=== PATIENT | female | born 1950 | race Asian ===

== ENCOUNTER 2019-09-24 10:39 | Day surgery (SDC) | payer OTHER ==
[2019-09-22 14:00] VITALS: BMI 21.2
[~2019-09-24 10:39] MED LIST: LACTATED RINGERS 1,000 ML IV SCH; LIDOCAINE 1% 20 ML VIAL (10MG/ML) FOR IV START INTRADERMA PRN
[2019-09-24 11:08] VITALS: TEMP 97.6
[2019-09-24] MEDS ORDERED: PROPOFOL 10 MG/ML 20 ML VIAL IV ONE (12:03)
--- NOTE | 2019-09-24 12:17 | P.PCN ---
Date of Procedure: 09/24/19 Procedure(s) Performed: BRIEF HISTORY: Patient is a 69-year-old pleasant femalescheduled for an elective colonoscopy as a part of screening for colorectal neoplasia. PROCEDURE PERFORMED: Colonoscopy. PREOPERATIVE DIAGNOSIS: Screening for colon cancer. IV sedation per Anesthesia. PROCEDURE: After informed consent was obtained, the patient, was brought into the endoscopy unit. IV sedation was administered by Anesthesia under continuous monitoring. Digital rectal examination was normal. Initially the Olympus CF-160 flexible video colonoscope was then inserted in the rectum, gradually advanced into the cecum without any difficulty. Careful examination was performed as the scope was gradually being withdrawn. Ileocecal valve and the appendiceal orifice were visualized and appeared normal. Prep was excellent. Mucosa of the cecum, ascending colon, transverse colon, descending colon, sigmoid colon, and rectum appeared normal. Retroflexion was performed in the rectum and no lesions were seen. The patient tolerated the procedure well. IMPRESSION: Normal-appearing colon from rectum to cecum . RECOMMENDATIONS: Findings of this examination were discussed with the patient [as well as her family. She was advised to have a repeat screening colonoscopy in 10 years
[2019-09-24 12:20] VITALS: RESP 16
[2019-09-24 12:35] VITALS: BP 90/48; PULSE 58
== END 2019-09-24 13:02 | disposition home or self-care (01) ==
LOC: ORWHC2ENDO 10:39 → EDSEX 12:40 → ORWHC2ENDO 13:02
PROVIDERS: ATTEND Internal Medicine Gastroenterology
DX: Z12.11 Encounter for screening for malignant neoplasm of colon (principal)
CPT/HCPCS: J2704; G0121; 45378

== ENCOUNTER → 2021-08-23 | Outpatient (CLI) | payer OTHER ==
--- NOTE | 2021-08-27 09:30 | MM ---
Reason for exam: screening (asymptomatic). History: Patient is postmenopausal. Physical Findings: A clinical breast exam by your physician is recommended on an annual basis and results should be correlated with mammographic findings. MG Screening Mammo w CAD Bilateral CC and MLO view(s) were taken. No prior studies available for comparison. There are scattered fibroglandular densities. There is an asymmetry in the upper right breast on MLO view only and diagnostic right mammogram and possible ultrasound are recommended. ASSESSMENT: Incomplete: need additional imaging evaluation, BI-RAD 0 RECOMMENDATION: Special view mammogram of the right breast. If lesion persists on supplemental views, image directed ultrasound is recommended. [facility] will attempt to contact patient to return for supplemental views and ultrasound if indicated.
== END | disposition home or self-care (01) ==
LOC: RADMAMWWP 08:19
PROVIDERS: ATTEND Family Medicine
DX: Z12.39 Encounter for other screening for malignant neoplasm of breast (principal)
CPT/HCPCS: 77067

== ENCOUNTER → 2021-09-19 | Outpatient (CLI) | payer OTHER ==
--- NOTE | 2021-09-19 16:14 | MR ---
EXAMINATION TYPE: MR brain and iac wo/w con DATE OF EXAM: 09/19/2021 COMPARISON: None HISTORY: Hearing loss, ringing in ears CONTRAST: Performed utilizing 5 mL intravenous Gadavist gadolinium contrast. TECHNIQUE: Multiplanar, multiecho imaging on a 3.0 Keeley magnet is performed through the brain. Atte ntion is paid to the internal auditory canals with thin section imaging. Postcontrast imaging is per formed through the internal auditory canals. FINDINGS:Craniovertebral junction is normal. The pituitary is normal. Diffusion-weighted imaging is performed. No suspicious hyperintensity is present to suggest an acute intracranial infarct or acute ischemic area. There are a few punctate subcortical white matter changes within the centrum semiovale bilaterally. T hese are nonspecific but could be related to microvascular ischemic change. Other etiologies includin g vasculitis, multiple sclerosis, migraine headaches could be considered. Thin section imaging is performed through the internal auditory canals and cerebellar pontine angles. No cerebellar pontine angle masses are evident. The internal auditory canals appear normal without expansion or erosion. Postcontrast imaging was performed. No suspicious enhancement is evident within the internal audito ry canals or the included portions of the brain. IMPRESSIONS: 1. Normal internal auditory canals. 2. Diffuse bilateral subcortical white matter changes are nonspecific but could be related to microva scular ischemic change
== END | disposition home or self-care (01) ==
LOC: RADMRIMAIN 09-03 07:34
PROVIDERS: ATTEND Otolaryngology
DX: H90.A22 Sensorineural hearing loss, unilateral, left ear, with restricted hearing on the contralateral side (principal)
CPT/HCPCS: 70553; A9585

== ENCOUNTER → 2021-12-10 | Outpatient (CLI) | payer OTHER ==
--- NOTE | 2021-12-11 08:37 | MM ---
Reason for exam: additional evaluation requested from abnormal screening. Last mammogram was performed 4 months ago. History: Patient is postmenopausal. Physical Findings: Nurse did not find any significant physical abnormalities on exam. MG Work Up Mamm w CAD RT LM and spot compression MLO view(s) were taken of the right breast. Prior study comparison: August 23, 2021, bilateral MG screening mammo w CAD. The breast tissue is heterogeneously dense. This may lower the sensitivity of mammography. Focal asymmetry less distinct. These results were verbally communicated with the patient and result sheet given to the patient on 12/10/21. ASSESSMENT: Probably benign, BI-RAD 3 RECOMMENDATION: Follow-up diagnostic mammogram of the right breast in 6 months.
== END ==
LOC: RADMAMWWP 14:27
PROVIDERS: ATTEND Family Medicine
DX: R92.8 Other abnormal and inconclusive findings on diagnostic imaging of breast (principal)
CPT/HCPCS: 77065

== ENCOUNTER 2022-10-25 17:39 | Emergency (ER) | payer OTHER ==
[2022-10-25] MEDS ORDERED: MORPHINE SULFATE 2 MG/ML SYRINGE IVP ONE (17:56)
--- NOTE | 2022-10-25 19:19 | XR ---
EXAMINATION TYPE: XR shoulder complete RT DATE OF EXAM: 10/25/2022 COMPARISON: NONE HISTORY: Pain. Fall. TECHNIQUE: 3 views FINDINGS: The glenohumeral joint is intact. There is some narrowing of the subacromial joint space. N o fracture seen. Scapula is intact. IMPRESSION: There is subacromial joint space narrowing. No fracture seen.
--- NOTE | 2022-10-25 19:21 | XR ---
EXAMINATION TYPE: XR humerus RT DATE OF EXAM: 10/25/2022 COMPARISON: NONE HISTORY: Pain TECHNIQUE: 4 views FINDINGS: There is no evidence of fracture nor dislocation. Glenohumeral joint is anatomic. The elbow joint is intact IMPRESSION: Negative right humerus exam.
--- NOTE | 2022-10-25 19:24 | XR ---
EXAMINATION TYPE: XR wrist complete BILATERAL DATE OF EXAM: 10/25/2022 COMPARISON: NONE HISTORY: Wrist pain. Fall. TECHNIQUE: 3 views each wrist FINDINGS: The left wrist appears intact without evidence for fracture. There is impacted transverse fracture of the right wrist distal radial metaphysis. There is slight an terior angulation and posterior displacement of the distal fragments on the lateral view. No dislocat ion. The metacarpals are intact. There is slight lateral displacement of the distal radius fracture f ragments 1 cm. IMPRESSION: No evidence of fracture of the left wrist. Slightly impacted transverse fracture distal right radius.
--- NOTE | 2022-10-25 19:42 | ED ---
General Adult HPI <Brad Corado - Last Filed: 10/25/22 22:28> - General Source: EMS, RN notes reviewed Mode of arrival: EMS <Lurdes Brown - Last Filed: 10/25/22 23:33> - General Chief complaint: Fall Stated complaint: broken arm Time Seen by Provider: 10/25/22 17:40 - History of Present Illness Initial comments: 72-year-old female presents to the emergency department with a chief complaint of right wrist pain after a fall. She reports that she was at the pressure store and didn't see a step and tripped with her hands out forward. She denies hitting her head, any loss of consciousness, any anticoagulant use. She denies any dizziness, loss of vision, changes in vision, headache, nausea, vomiting. She did not take anything for his symptoms prior to arrival. (Lurdes Brown) - Related Data Home Medications Medication Instructions Recorded Confirmed Multivitamins, Thera [Multivitamin 1 tab PO DAILY 09/22/19 09/22/19 (formulary)] Previous Rx's Medication Instructions Recorded HYDROcodone/APAP 5-325MG [Morrice 1 tab PO Q6HR PRN 3 Days #12 tab 10/25/22 5-325] Allergies Allergy/AdvReac Type Severity Reaction Status Date / Time No Known Allergies Allergy Verified 09/22/19 13:51 Review of Systems ROS Other: All systems not noted in ROS Statement are negative. <Brad Corado - Last Filed: 10/25/22 22:28> ROS Other: All systems not noted in ROS Statement are negative. <Lurdes Brown - Last Filed: 10/25/22 23:33> ROS Statement: Those systems with pertinent positive or pertinent negative responses have been documented in the HPI. Past Medical History Additional Past Medical History / Comment(s): dtr states "follows with Climatologist for racing heart and fatigue",makenzie cataracts History of Any Multi-Drug Resistant Organisms: None Reported Additional Past Surgical History / Comment(s): rt cataract 09-20-19 Past Anesthesia/Blood Transfusion Reactions: No Reported Reaction Past Alcohol Use History: Occasional Past Drug Use History: None Reported - Past Family History Mother Additional Family Medical History / Comment(s): heart problems Father Family Medical History: Cancer Additional Family Medical History / Comment(s): lung <Lurdes Brown - Last Filed: 10/25/22 23:33> General Exam General appearance: alert, in no apparent distress Head exam: Present: atraumatic, normocephalic, normal inspection Eye exam: Present: normal appearance, PERRL, EOMI. Absent: scleral icterus, conjunctival injection, periorbital swelling ENT exam: Present: normal exam, mucous membranes moist Neck exam: Present: normal inspection. Absent: tenderness, meningismus, lymphadenopathy Respiratory exam: Present: normal lung sounds bilaterally. Absent: respiratory distress, wheezes, rales, rhonchi, stridor Cardiovascular Exam: Present: regular rate, normal rhythm, normal heart sounds. Absent: systolic murmur, diastolic murmur, rubs, gallop, clicks GI/Abdominal exam: Present: soft, normal bowel sounds. Absent: distended, tenderness, guarding, rebound, rigid Extremities exam: Present: normal inspection, full ROM, normal capillary refill. Absent: tenderness, pedal edema, joint swelling, calf tenderness Right Hand Wrist exam: Present: tenderness, swelling, ecchymosis, deformity, other (2+ radial pulse, distal NVI ). Absent: normal inspection, full ROM (limited secondary to pain ), crepitus, erythema Back exam: Present: normal inspection Neurological exam: Present: alert, oriented X3, CN II-XII intact Psychiatric exam: Present: normal affect, normal mood Skin exam: Present: warm, dry, intact, normal color. Absent: rash <AbelanhLurdes albrecht - Last Filed: 10/25/22 23:33> Course <AbelanhLurdes albrecht - Last Filed: 10/25/22 23:33> Vital Signs 10/25/22 10/25/22 10/25/22 17:41 21:37 21:41 Temperature 97.7 F Pulse Rate 74 64 67 Respiratory 18 18 26 H Rate Blood Pressure 149/73 139/72 190/92 O2 Sat by Pulse 97 100 100 Oximetry 10/25/22 10/25/22 10/25/22 21:46 21:50 21:56 Temperature Pulse Rate 68 66 67 Respiratory 21 20 18 Rate Blood Pressure 167/87 162/84 163/85 O2 Sat by Pulse 100 100 100 Oximetry 10/25/22 10/25/22 10/25/22 22:16 22:32 23:03 Temperature 98.3 F Pulse Rate 73 68 67 Respiratory 16 18 18 Rate Blood Pressure 156/80 150/76 142/69 O2 Sat by Pulse 94 L 96 96 Oximetry - Reevaluation(s) Reevaluation #1: 10/25/22 19:[address] Mcfarlane Orthopedist on-call who recommends we reduce the right wrist and placed the patient in a sugar tong splint with follow-up outpatient appointment next week. (Lurdes Brown) Reevaluation #2: 10/25/22 21:47 Conscious sedation procedure completed. (Lurdes Brown) Procedures - Orthopedic Fracture Reduction Fracture #1 Consent Obtained: verbal consent, written consent Side: right Fracture Reduction Location: radius Analgesia: procedural sedation Technique: direct manipulation, traction/counter-traction Post Reduction X-rays Demonstrate: acceptable reduction Post-Reduction Neuro Exam: intact Post-Reduction Vascular Exam: intact Splint Applied: Yes Patient Tolerated Procedure: well - Procedural Sedation *Procedural Sedation Start Time: 21:37 *Procedural Sedation Stop Time: 22:00 *Indications: fracture/dislocation reduction *Previous Adverse Reaction to Anesthesia/Sedation?: No * Testing Complete?: No Reason Test Not Complete:: Age > 60 *ASA Class: I *Mallampati Airway Score: 2 *Time of Last PO Intake: 14:00 Preparation: technical report writer applied, pulse oximeter, capnometry used, supplemental O2 applied, suction/airway equipment at bedside, IV secured Ketamine: IV Ketamine Dose: 25 IV Propofol Dose (mgs): 30 Complications: none Patient Tolerated Procedure: well <Brad Corado - Last Filed: 10/25/22 22:28> - Orthopedic Joint Reduction Joint #1 Consent Obtained: written consent Side: right - Orthopedic Splinting/Casting Injury #1 Side: right Upper Extremity Injury Location: wrist Upper Extremity Immobilizer: sling/shoulder immobilizer, sugar tong splint <Lurdes Brown - Last Filed: 10/25/22 23:33> - Orthopedic Fracture Reduction Fracture #1 Additional Comments: Neurovascularly intact following the procedure. Intact sensation and intact capillary refill <2s. (Brad Corado) - Orthopedic Joint Reduction Joint #1 Additional Comments: Seizure performed at 21:37 with NASIR Dobbs, respiratory therapist, Chelsie Clark at bedside. Patient tolerated well. (Lurdes Brown) - Orthopedic Splinting/Casting Injury #1 Additional Comments: 2+ radial pulses post reduction, distal NVI remains intact postreduction. (Lurdes Brown) - Procedural Sedation Presedation Evaluation: No prior adverse reaction to sedation (Brad Corado) Additional Comments: Patient consented via translation via her daughter who speaks good Lithuanian and I answered all questions that she had. (Brad Corado) Medical Decision Making <Lurdes Brown - Last Filed: 10/25/22 23:33> - Medical Decision Making Was pt. sent in by a medical professional or institution (, PA, AUTO RADIO MECHANIC, urgent care, hospital, or senior living...) When possible be specific @ -[No] Did you speak to anyone other than the patient for history (EMS, parent, family, police, friend...)? What history was obtained from this source @ -[No] Did you review nursing and triage notes (agree or disagree)? Why? @ -[I reviewed and agree with nursing and triage notes] Were old charts reviewed (outside hosp., previous admission, EMS record, old EKG, old radiological studies, urgent care reports/EKG's, senior living records)? Report findings @ -[No old charts were reviewed] Differential Diagnosis (chest pain, altered mental status, abdominal pain women, abdominal pain men, vaginal bleeding, weakness, fever, dyspnea, syncope, headache, dizziness, GI bleed, back pain, seizure, CVA, palpatations, mental health)? @ -[not applicable] EKG interpreted by me (3pts min.). @ -[As above] X-rays interpreted by me (1pt min.). @ Initial x-ray with impacted transverse fracture of the right wrist distal radial metaphysis there is slight anterior angulation and posterior displacement of the distal fragment on the lateral view Post reduction x-ray results reveal transverse fracture of the distal radius CT interpreted by me (1pt min.). @ -[None done] U/S interpreted by me (1pt. min.). @ -[None done] What testing was considered but not performed or refused? (CT, X-rays, U/S, labs)? Why? @ -[None] What meds were considered but not given or refused? Why? @ -[None] Did you discuss the management of the patient with other professionals (professionals i.e. , PA, AUTO RADIO MECHANIC, lab, RT, psych nurse, licensed social worker, supply chain associate, teacher, correction officer reformatory, binder caser)? Give summary @ -[No] Was smoking cessation discussed for >3mins.? @ -[No] Was critical care preformed (if so, how long)? @ -[No] Were there social determinants of health that impacted care today? How? (Homelessness, low income, unemployed, alcoholism, drug addiction, transportation, low edu. Level, literacy, decrease access to med. care, group home, rehab)? @ -[No] Was there de-escalation of care discussed even if they declined (Discuss DNR or withdrawal of care, Hospice)? DNR status @ -[No] What co-morbidities impacted this encounter? (DM, HTN, Smoking, COPD, CAD, Cancer, CVA, ARF, Chemo, Hep., AIDS, mental health diagnosis, sleep apnea, morbid obesity)? @ -[None] Was patient admitted / discharged? Hospital course, mention meds given and route, prescriptions, significant lab abnormalities, going to OR and other pertinent info. @ 72-year-old female presents to the emergency department with a chief complaint of right wrist pain. She had a history and physical performed. Physical exam reveals tender, deformed R wirst with 2+ radial pulses, distal NVI. Conscious sedation was performed on the patient in order to achieve reduction. Post reduction x-rays show better alignment and cleaning transfer the right distal radius. Patient was given morphine with symptomatic relief on the emergency department. I discussed the results in detail with the patient, patient verbalized understanding all questions were addressed. Return precautions were discussed. She was encouraged to follow up with orthopedist Dr. Walker's and within 1-2 days. She was given a prescription of Morrice 5 and Zofran 4 postanesthesia nausea. Patient was discharged in stable condition. I discussed the case with Dr. Corado who agrees with plan for discharge Undiagnosed new problem with uncertain prognosis? @ -[No] Drug Therapy requiring intensive monitoring for toxicity (Heparin, Nitro, Insulin, Cardizem)? @ -[No] Were any procedures done? @ -[No] Diagnosis/symptom? @ -riht distal radius fracture Acute, or Chronic, or Acute on Chronic? @ -[default] Uncomplicated (without systemic symptoms) or Complicated (systemic symptoms)? @ -[default] Side effects of treatment? @ -[No] Exacerbation, Progression, or Severe Exacerbation? @ -[No] Poses a threat to life or bodily function? How? (Chest pain, USA, PR, pneumonia, PE, COPD, DKA, ARF, appy, cholecystitis, CVA, Diverticulitis, Homicidal, Suicidal, threat to staff... and all critical care pts) @ -[No] (Lurdes Brown) Disposition <Brad Corado - Last Filed: 10/25/22 22:28> Is patient prescribed a controlled substance at d/c from ED?: Yes When asked, does pt state using other controlled substances?: No If prescribed controlled substance>3 days was MAPS reviewed?: Prescribed <3 Days If opioid is for acute pain is fill amount 7 days or less?: Yes If Rx opioid, was Start Talking consent form obtained?: Yes Time of Disposition: 22:35 <Lurdes Brown - Last Filed: 10/25/22 23:33> Clinical Impression: Fall, Radius distal fracture Disposition: HOME SELF-CARE Condition: Stable Prescriptions: HYDROcodone/APAP 5-325MG [Morrice 5-325] 1 tab PO Q6HR PRN 3 Days #12 tab PRN Reason: Pain Referrals: Kadie Alcantar MD [Primary Care Provider] - 1-2 days Jimmy Mcfarlane DO [Doctor of Osteopathic Medicine] - 1-2 days Kenji Parra DO [REFERRING] - 1-2 days
[2022-10-25] MEDS ORDERED: PROPOFOL 10 MG/ML 20 ML VIAL IV ONE (20:14)
[2022-10-25] MEDS ORDERED: KETAMINE 50 MG/ML 10 ML VIAL IV STA (20:56)
[2022-10-25] MEDS ORDERED: ONDANSETRON 4 MG/2 ML VIAL IVP STA (22:05)
--- NOTE | 2022-10-25 22:08 | XR ---
EXAMINATION TYPE: XR wrist limited RT DATE OF EXAM: 10/25/2022 COMPARISON: NONE HISTORY: Post reduction TECHNIQUE: 2 views FINDINGS: There is transverse fracture of the distal radial metaphysis. No displacement. No dislocati on. Carpal bones are intact. Metacarpals are intact. IMPRESSION: There is satisfactory reduction of the fracture of the distal radius compared to recent e xam. No complicating process seen.
[2022-10-25 22:33] VITALS: RESP 18
[2022-10-25] MEDS ORDERED: ONDANSETRON 4 MG ODT STARTER PACK 2 TAB BTL PO STA (22:56)
[2022-10-25] MEDS ORDERED: ACET/COD 300 MG/30 MG STARTER PACK 6 TAB BTL PO STA (22:56)
[2022-10-25 23:04] VITALS: BP 142/69; PULSE 67; TEMP 98.3
== END 2022-10-25 23:04 | disposition home or self-care (01) ==
LOC: EC 17:39
DX: S59.201A Unspecified physeal fracture of lower end of radius, right arm, initial encounter for closed fracture (principal); W01.0XXA Fall on same level from slipping, tripping and stumbling without subsequent striking against object, initial encounter; Y92.481 Parking lot as the place of occurrence of the external cause
CPT/HCPCS: 73110; 73030; 73060; 73100; 25605; 99152; 99153; 99284; 96374; 96375; J2405; J2270; S0119; J2704

== ENCOUNTER → 2023-02-21 | Outpatient (CLI) | payer OTHER ==
--- NOTE | 2023-02-21 10:30 | MM ---
Reason for Exam: Follow-up at short interval from prior study. Last mammogram was performed 1 year(s) and 6 month(s) ago. Patient History: Menarche at age 18. First Full-Term at age 26. Postmenopausal. Risk Values: Sophia 5 year model risk: 1.8%. NCI Lifetime model risk: 4.6%. Prior Study Comparison: 08/23/2021 Bilateral Screening Mammogram, [facility]. 12/10/2021 Right Diagnostic Mammogram, [facility]. Tissue Density: The breast tissue is heterogeneously dense. This may lower the sensitivity of mammography. Findings: Analyzed By CAD. No suspicious mass or distortion within either breast. No suspicious group of microcalcifications within either breast. Previously seen asymmetry within the upper right breast on the MLO view is less distinct on today's exam. Overall Assessment: Benign, BI-RAD 2 Management: Screening Mammogram of both breasts in 1 year. A clinical breast exam by your physician is recommended on an annual basis and results should be correlated with mammographic findings. This exam should not preclude additional follow-up of suspicious palpable abnormalities. Results were given to the patient verbally at the time of exam. Electronically signed and approved by: Tan Combs D.O.
--- NOTE | 2023-02-25 19:08 | BD ---
EXAMINATION TYPE: Axial Bone Density DATE OF EXAM: 02/21/2023 CLINICAL HISTORY: 72 years old Female. ICD-10 CODE: Z13.820 SCREEN, Z78.0 ASYMPTOMATC MENOPAUSAL STA TE Height: 62 Weight: 128.3 FRAX RISK QUESTIONS: Alcohol (3 or more units per day): no Family History (Parent hip fracture): no Glucocorticoids (More than 3mos): no (Ex: prednisone, prednisolone, methylprednisolone, dexamethasone, and hydrocortisone). History of Fracture in Adulthood: wrist Secondary Osteoporosis: 1. Type 1 Diabetes: no 2. Hyperthyroidism: no 3. Menopause before 45: no 4. Malnutrition: no 5. Chronic liver disease: no Rheumatoid Arthritis: no Current Tobacco Use: no RISK FACTORS HISTORY OF: Hip Fracture (Right/Left): no Spine Fracture: no History of Wrist Fracture: yes When: Oct 2022 Surgery to Spine/Hip(right/left)/Wrist (right/left): no Family History of Osteoporosis: no Active: no Diet low in dairy products/other sources of calcium: no Postmenopausal woman: yes Take estrogen and/or progesterone medications: no Lost more than 2 inches in height since high school: no Frequent falls: no Poor Health: no Hyperparathyroidism: no Adrenal Insufficiency: no MEDICATIONS: Prednisone or other steroids: no Thyroid Medications: no Osteoporosis Medications: no Additional Medications: Cholesterol Meds, Vit D Best history possible, needed agency development manager for all questions Additional History: EXAM MEASUREMENTS: Bone mineral densitometry was performed using the [employer] System. Bone mineral density as measured about the Lumbar spine is: ----- L1-L4(G/cm2): 0.676 T Score Values are as follows: ----- L1: -4.6 ----- L2: -4.2 ----- L3: -4.6 ----- L4: -3.7 ----- L1-L4: -4.2 Z Score Values are as follows: ----- L1: -2.6 ----- L2: -2.3 ----- L3: -2.6 ----- L4: -1.8 ----- L1-L4: -2.3 Baseline Study Bone mineral density about the R hip (g/cm2): 0.684 Bone mineral density about the L hip (g/cm2): 0.738 T Score values are as follows: -----R Neck: -2.9 -----L Neck: -2.6 -----R Total: -2.6 -----L Total: -2.1 Z Score values are as follows: -----R Neck: -1.0 -----L Neck: -0.6 -----R Total: -0.8 -----L Total: -0.4 Bone mineral density has: 16.9 % since study of: 5.7 IMPRESSION: Osteoporosis (T Score less than -2.5). There is increased fracture risk and therapy is usually indicated based on age. Re-Screen 1-2 years. NOTE: T-SCORE=SD OF THE YOUNG ADULT MEAN.
== END | disposition home or self-care (01) ==
LOC: RADBDWWP 09:19
PROVIDERS: ATTEND Family Medicine
DX: Z13.820 Encounter for screening for osteoporosis (principal); R92.8 Other abnormal and inconclusive findings on diagnostic imaging of breast; M81.0 Age-related osteoporosis without current pathological fracture; M85.89 Other specified disorders of bone density and structure, multiple sites; Z78.0 Asymptomatic menopausal state
CPT/HCPCS: 77080; 77066; G0279; 77062

== ENCOUNTER 2023-03-12 10:54 | Emergency (ER) | payer OTHER ==
[2023-03-12] MEDS ORDERED: LORazepam 2 MG/ML INJ IV STA (11:12)
--- NOTE | 2023-03-12 11:17 | ED ---
Chest Pain HPI - General Chief Complaint: Chest Pain Stated Complaint: anxiety Time Seen by Provider: 03/12/23 11:00 Source: patient, gear setter, RN notes reviewed Mode of arrival: EMS Limitations: language barrier - History of Present Illness Initial Comments: This is a 72-year-old female who presents to the emergency department for chest pain and anxiety. Patient was having a dental procedure done today and shortly after they injected her with lidocaine with epinephrine, she started to develop a sensation of her heart racing with chest pain, followed by tingling in her extremities. This prompted her dentist to call EMS and have her brought to the emergency department. Denies any history of heart problems. Also states that she has never had any dental procedures done in the past or received this medication before. She is still symptomatic in terms of the chest pain and tingling in the extremities. Patient does speak Mandarin and an gear setter was used in obtaining the history. She denies any associated shortness of breath, nausea, or vomiting. MD Complaint: chest pain - Related Data Home Medications Medication Instructions Recorded Confirmed Aspirin EC [Ecotrin Low Dose] 81 mg PO DAILY 03/12/23 03/12/23 Atorvastatin [Lipitor] 20 mg PO HS 03/12/23 03/12/23 Fish Oil(Unknown) 1 cap PO DAILY 03/12/23 03/12/23 Allergies Allergy/AdvReac Type Severity Reaction Status Date / Time No Known Allergies Allergy Verified 03/12/23 13:29 Review of Systems ROS Statement: Those systems with pertinent positive or pertinent negative responses have been documented in the HPI. ROS Other: All systems not noted in ROS Statement are negative. Past Medical History Additional Past Medical History / Comment(s): dtr states "follows with Television Host for racing heart and fatigue",makenzie cataracts History of Any Multi-Drug Resistant Organisms: None Reported Additional Past Surgical History / Comment(s): rt cataract 12--19 Past Anesthesia/Blood Transfusion Reactions: No Reported Reaction Past Alcohol Use History: Occasional Past Drug Use History: None Reported - Past Family History Mother Additional Family Medical History / Comment(s): heart problems Father Family Medical History: Cancer Additional Family Medical History / Comment(s): lung General Exam Limitations: language barrier General appearance: alert, in no apparent distress Head exam: Present: atraumatic, normocephalic, normal inspection Respiratory exam: Present: normal lung sounds bilaterally. Absent: respiratory distress, wheezes, rales, rhonchi, stridor Cardiovascular Exam: Present: regular rate, normal rhythm, normal heart sounds. Absent: systolic murmur, diastolic murmur, rubs, gallop, clicks Neurological exam: Present: alert, oriented X3, CN II-XII intact Psychiatric exam: Present: normal affect, normal mood Skin exam: Present: warm, dry, intact, normal color. Absent: rash Course Vital Signs 03/12/23 03/12/23 11:06 15:15 Temperature 98.2 F 98.5 F Pulse Rate 62 63 Respiratory 20 18 Rate Blood Pressure 129/68 131/72 O2 Sat by Pulse 98 97 Oximetry Chest Pain MDM - MDM This is a 72-year-old female who presents to the emergency department for chest pain and anxiety. Was pt. sent in by a medical professional or institution? @ -No Did you speak to anyone other than the patient for history? @ -Bag Making Machine Operator was used for communication, however she did not provide additional information. Did you review nursing and triage notes? @ -Yes, and I agree, it is accurate with regards to the patient's symptoms. Were old charts reviewed? @ -No Differential Diagnosis? @ -Differential Chest Pain: Stable Angina, Unstable Angina, STEMI, NSTEMI Aortic Dissection, Pneumothorax, Musculoskeletal, Esophageal Spasm GERD, Cholecystitis, Pancreatitis, Zoster, this is not meant to be an all-inclusive list. EKG interpreted by me (3pts min.)? @ -EKG interpreted by me demonstrating the following: Sinus rhythm. Ventricular rate 65 beats per minute, CO interval 173 ms, QRS duration 88 ms, QTC 347 ms. X-rays interpreted by me (1pt min.)? @ -Chest x-ray obtained, my interpretation identifies no localized consolidations or infiltrates. CT interpreted by me (1pt min.)? @ -Not obtained U/S interpreted by me (1pt. min.)? @ -Not obtained What testing was considered but not performed? (CT, X-rays, U/S, labs)? Why? @ -None What meds were considered but not given? Why? @ -None Did you discuss the management of the patient with other professionals? @ -No Did you reconcile home meds? @ -No Was smoking cessation discussed for >3mins.? @ -No Was critical care preformed (if so, how long)? @ -No Were there social determinants of health that impacted care today? How? (Homelessness, low income, unemployed, alcoholism, drug addiction, transportation, low edu. Level, literacy, decrease access to med. care, fci, rehab)? @ -No Was there de-escalation of care discussed even if they declined? (Discuss DNR or withdrawal of care, Hospice)? @ -No What co-morbidities impacted this encounter? (DM, HTN, Smoking, COPD, CAD, Cancer, CVA, Hep., AIDS, mental health diagnosis, sleep apnea, morbid obesity)? @ -None Was patient admitted / discharged? @ -Discharged. An gear setter was used throughout the entire discussion with the patient because she only speaks Mandarin. Discussed that her symptoms may be related to the lidocaine with epinephrine she received at the dentist. However, given her symptoms and her age, we cannot rule out a cardiac process and we will proceed with cardiac workup including blood work, EKG, and chest x- ray. Patient is agreeable to this. Lab work obtained and found be nonactionable. We repeated a second troponin, which was also negative. Chest x-ray revealed no acute findings. She was given 0.5 mg of Ativan with resolution of symptoms. Advised that she follow-up with her primary care provider and her dentist for reevaluation. Undiagnosed new problem with uncertain prognosis? @ -None Drug Therapy requiring intensive monitoring for toxicity (Heparin, Nitro, Insulin, Cardizem)? @ -None Were any procedures done? @ -None Diagnosis/symptom? @ -Chest pain Acute, or Chronic, or Acute on Chronic? @ -Acute Uncomplicated (without systemic symptoms) or Complicated (systemic symptoms)? @ -Uncomplicated Side effects of treatment? @ -None Exacerbation, Progression, or Severe Exacerbation] @ -Not applicable Poses a threat to life or bodily function? @ -No Return precautions reviewed in depth, the patient is instructed to return to the emergency department with any new, worsening, or concerning symptoms. Patient verbalized understanding. This case was discussed in detail with the attending ED physician, Dr. Amin. Presentation, findings, and treatment plan discussed in detail as well. Disposition Clinical Impression: Chest pain Disposition: HOME SELF-CARE Instructions (If sedation given, give patient instructions): Chest Pain (ED), Noncardiac Chest Pain (ED) Additional Instructions: Return to the emergency department with any new, worsening, or concerning symptoms. Follow up with your primary care provider in 1-2 days. Is patient prescribed a controlled substance at d/c from ED?: No Referrals: Kadie Alcantar MD [Primary Care Provider] - 1-2 days
--- NOTE | 2023-03-12 11:53 | XR ---
EXAMINATION TYPE: XR chest 2V DATE OF EXAM: 03/12/2023 COMPARISON: NONE HISTORY: Chest pain. TECHNIQUE: Frontal and lateral views of the chest are obtained. FINDINGS: There is no focal air space opacity, pleural effusion, or pneumothorax seen. The cardiac silhouette size is within normal limits. The osseous structures are demineralized. IMPRESSION: No acute cardiopulmonary process.
[2023-03-12 12:31] LABS: ALT 26 U/L (4-34); AST 33 U/L (14-36); African American GFR (CKD) >90 (>60 ml/min/1.73 sqM); Albumin 4.5 g/dL (3.5-5.0); Alkaline Phosphatase 105 U/L (38-126); Anion Gap 11 mmol/L; Blood Urea Nitrogen 15 mg/dL (7-17); Calcium 9.7 mg/dL (8.4-10.2); Carbon Dioxide 27 mmol/L (22-30); Chloride 104 mmol/L (98-107); Glucose 122 mg/dL (74-99); Magnesium 2.3 mg/dL (1.6-2.3); Non-African American GFR(CKD) >90 (>60 ml/min/1.73 sqM); Potassium 3.8 mmol/L (3.5-5.1); Sodium 142 mmol/L (137-145); Total Bilirubin 0.5 mg/dL (0.2-1.3)
[2023-03-12 12:33] LABS: Basophils # (A) 0.1 k/uL (0-0.2); Basophils % (A) 1 %; Eosinophils # (A) 0.2 k/uL (0-0.7); Eosinophils % (A) 2 %; HCT 43.8 % (34.0-46.0); HGB 14.5 gm/dL (11.4-16.0); Lymphocytes % (A) 12 %; MCH 29.9 pg (25.0-35.0); MCHC 33.2 g/dL (31.0-37.0); MCV 89.9 fL (80.0-100.0); Mean Platelet Volume 7.7; Monocytes # (A) 0.4 k/uL (0-1.0); Monocytes % (A) 4 %; Neutrophils # (A) 6.7 k/uL (1.3-7.7); Neutrophils % (A) 80 %; Platelet Count 275 k/uL (150-450); RBC 4.87 m/uL (3.80-5.40); RDW 12.7 % (11.5-15.5); WBC 8.4 k/uL (3.8-10.6)
[2023-03-12 12:42] LABS: INR 0.9 (<1.2); Partial Thromboplastin Time 25.5 sec (22.0-30.0); Prothrombin Time 9.7 sec (9.0-12.0)
[2023-03-12 15:21] VITALS: BP 131/72; PULSE 63; RESP 18; TEMP 98.5
== END 2023-03-12 15:20 | disposition home or self-care (01) ==
LOC: EC 10:54
DX: R07.9 Chest pain, unspecified (principal)
CPT/HCPCS: 36415; 93005; 80053; 83735; 84484; 85025; 85610; 85730; 71046; 99285; 96374; J2060

== ENCOUNTER → 2023-10-17 | Outpatient (CLI) | payer OTHER ==
--- NOTE | 2023-10-17 09:59 | US ---
EXAMINATION TYPE: US abdomen complete DATE OF EXAM: 10/17/2023 COMPARISON: NONE CLINICAL INDICATION: Female, 73 years old with history of R39.9 UTI; RECURRENT UTIS TECHNIQUE: Multiple sonographic images of the abdomen are obtained. FINDINGS: EXAM MEASUREMENTS: Liver Length: 12.2 cm Gallbladder Wall: 0.2 cm CBD: 0.4 cm Spleen: 8.6 cm Right Kidney: 9.1X3.4X4.9 cm Left Kidney: 10.2X4.2X3.8 cm PHYSICAL THERAPIST CENTER MANAGER NOTES: Pancreas: Tail obscured by overlying bowel gas Liver: wnl Gallbladder: wnl Evidence for sonographic Leiva's sign: No CBD: wnl Spleen: wnl Right Kidney: No hydronephrosis or masses seen Left Kidney: No hydronephrosis or masses seen Upper IVC: wnl Abd Aorta: wnl EXAM LIMITED BY BOWEL AND TIGHT RIB SPACES IMPRESSION: 1. No acute abdomen ultrasound abnormality.
--- NOTE | 2023-10-17 10:01 | US ---
EXAMINATION TYPE: US pelvis complete transvag DATE OF EXAM: 10/17/2023 COMPARISON: NONE CLINICAL INDICATION: Female, 73 years old with history of R39.9 UTI; RECURRENT UTIS TECHNIQUE: Transvaginal (TV) and Transabdominal (TA) . Transabdominal sonographic images of the pel vis were acquired. Transvaginal sonographic images were medically necessary to better assess the fol lowing anatomy: Uterus Date of LMP: post-kvng EXAM MEASUREMENTS: Uterus: 5.4x2.5x3.8 cm Endometrial Stripe: 0.2 cm Right Ovary: not visualized Left Ovary: not visualized 1. Uterus: Anteverted wnl 2. Endometrium: wnl 3. Right Ovary: Obscured by overlying bowel gas 4. Left Ovary: Obscured by overlying bowel gas 5. Bilateral Adnexa: Obscured by overlying bowel gas 6. Posterior cul-de-sac: wnl exam limited by bowel. Urinary bladder as visualized is unremarkable. IMPRESSION: 1. No acute pelvic ultrasound abnormality. Exam limited due to bowel gas.
== END | disposition home or self-care (01) ==
LOC: RADUSWWP 08:49
PROVIDERS: ATTEND Internal Medicine
DX: R39.9 Unspecified symptoms and signs involving the genitourinary system (principal); N39.0 Urinary tract infection, site not specified
CPT/HCPCS: 76700; 76830; 76856